=== PATIENT | female | born 1950 | race African-American/Black ===

== ENCOUNTER 2024-06-25 14:40 | Emergency (ER) | payer OTHER ==
[~2024-06-25] VITALS: Ht 167.6 cm; Wt 45.4 kg
[2024-06-25] MEDS ORDERED: IBUPROFEN 600 MG TABLET ONE (15:16)
[2024-06-25] MEDS: IBUPROFEN 600 MG TABLET PO ONE (15:23)
[2024-06-25 16:18] VITALS: BP 125/74; O2SAT 98
== END 2024-06-25 16:19 ==
LOC: ER 14:55
DX: M79.642 Pain in left hand (principal); M79.641 Pain in right hand; M54.2 Cervicalgia; I10 Essential (primary) hypertension; M06.9 Rheumatoid arthritis, unspecified

== ENCOUNTER 2024-11-18 10:14 | Inpatient (IN) | payer OTHER ==
[~2024-11-18] VITALS: Ht 165.1 cm; Wt 39.2 kg
[2024-11-18 11:47] LABS: PLATELET COUNT (AUTO) 352 K/uL (150-450); RED BLOOD CELL COUNT(AUTO) 4.78 MIL/uL (4.0-5.2); RED CELL DISTRIBUTION WIDTH 18.9 % (11.5-15.0); WHITE BLOOD COUNT (AUTO) 8.2 K/uL (4.3-11.0)
[2024-11-18 11:53] LABS: CALCIUM, SERUM 8.9 mg/dL (8.5-10.1); CREATININE 0.8 mg/dL (0.6-1.3); SODIUM SERUM 140 mmol/L (136-145); UREA NITROGEN, BLOOD 11 mg/dL (7-18)
[2024-11-18 11:58] LABS: ASPARTATE AMINOTRANSFERASE 22 U/L (15-37); TOTAL PROTEIN, SERUM 8.9 g/dL (6.4-8.2)
[2024-11-18 12:02] LABS: LACTIC ACID 2.4 mmol/L (0.4-2.0)
[2024-11-18 12:02] LABS: APPEARANCE,URINE CLOUDY (CLEAR); BLOOD, URINE NEGATIVE Ery/uL (NEGATIVE); LEUKOCYTE ESTERASE ,URINE NEGATIVE (NEGATIVE); NITRITE, URINE NEGATIVE (NEGATIVE); UGLUCOSE NEGATIVE (NEGATIVE)
[2024-11-18 12:06] LABS: ADD URINE CULTURE NO; SQUAMOUS EPITHELIAL CELL,UR Moderate /HPF (None Seen); URINE AMORPHOUS URATE Many /HPF (None Seen)
[2024-11-18 12:08] LABS: INR 1.04 (0.91-1.10)
[2024-11-18] MEDS: PIPERACILLIN /TAZOBACTAM 3.375 G in IV D5W 50 ML IV ONE (12:30)
[2024-11-18 12:34] VITALS: O2SAT 99
[2024-11-18] MEDS ORDERED: IV NS 0.9% 250 ML IV ONE (12:40)
[2024-11-18] MEDS ORDERED: IOHEXOL-300 100 ML VIAL IV ONE (12:40)
[2024-11-18] MEDS ORDERED: NEBI2.5T5 PO (12:42)
[2024-11-18] MEDS ORDERED: ACET-73 PO (12:42)
[2024-11-18] MEDS ORDERED: OMEG1CAP76 PO (12:42)
[2024-11-18] MEDS ORDERED: IRON PO (12:42)
[2024-11-18] MEDS ORDERED: AMLO-212 PO (12:42)
[2024-11-18] MEDS ORDERED: MULT-1168 PO (12:42)
[2024-11-18] MEDS ORDERED: METRONIDAZOLE 500MG/ NS 100ML 100 ML IV ONE (13:53)
[2024-11-18] MEDS: IV NS 0.9% 1,000 ML BAG IV ONE (13:59)
[2024-11-18] MEDS: FLAGYL/NS RTU 500 MG/100 ML PIGGYBACK IV ONE (13:59)
[2024-11-18 16:00] VITALS: BP 153/85; TEMP 98.1; O2SAT 98
[2024-11-18] MEDS ORDERED: ONDANSETRON HCL/PF 4 MG/2 ML VIAL IVP PRN (16:00)
[2024-11-18] MEDS ORDERED: Z GUARD REMEDY 4 OZ OINT TP PRN (16:00)
[2024-11-18] MEDS ORDERED: MAGNESIUM HYDROXIDE 30 ML UDC PO PRN (16:00)
[2024-11-18] MEDS ORDERED: ACETAMINOPHEN 325 MG TABLET PO PRN (16:00)
[2024-11-18] MEDS ORDERED: MAG HYDROX/AL HYDROX/SIMETH 30 ML UDC PO PRN (16:00)
[2024-11-18] MEDS ORDERED: DOSING PER PHARMACY-ZOSYN IV 1 EA EA XX PRN (16:00)
[2024-11-18] MEDS: IV NS 0.9% 1,000 ML IV PRN (16:25)
[2024-11-18] MEDS ORDERED: MORPHINE SULFATE INJ 2 MG/ML DISP.SYRIN IV PRN (16:30)
[2024-11-18] MEDS ORDERED: HYDROMORPHONE 1 MG/1 ML DISP.SYRIN IV PRN (16:30)
[2024-11-18] MEDS: ZOSYN IVPB 2.25 G in IV D5W 50ml IV SCH (17:27)
[2024-11-18 20:00] VITALS: BP 157/83; TEMP 97.7; O2SAT 99
[2024-11-19 05:50] LABS: PLATELET COUNT (AUTO) 309 K/uL (150-450); RED BLOOD CELL COUNT(AUTO) 4.01 MIL/uL (4.0-5.2); RED CELL DISTRIBUTION WIDTH 18.9 % (11.5-15.0); WHITE BLOOD COUNT (AUTO) 5.1 K/uL (4.3-11.0)
[2024-11-19 06:03] LABS: CALCIUM, SERUM 8.2 mg/dL (8.5-10.1); CREATININE 0.6 mg/dL (0.6-1.3); PHOSPHORUS 3.3 mg/dL (2.5-4.9); SODIUM SERUM 145.0 mmol/L (136-145); UREA NITROGEN, BLOOD 7.0 mg/dL (7-18)
[2024-11-19 08:32] VITALS: BP 120/67; TEMP 97.5; O2SAT 96
[2024-11-19] MEDS: POTASSIUM CHLORIDE 20 MEQ POWDER PACKET PO ONE (09:56)
[2024-11-19] MEDS: PIPERACILLIN /TAZOBACTAM 3.375 G in IV D5W 100 ML IV SCH (13:21)
[2024-11-19 16:11] VITALS: BP 116/67; TEMP 98.2; O2SAT 97
[2024-11-19 20:00] VITALS: BP 132/76; TEMP 98.2; O2SAT 100
[2024-11-19 20:02] LABS: OCCULT BLOOD STOOL POSITIVE (NEGATIVE)
[2024-11-20 06:16] LABS: CALCIUM, SERUM 8.6 mg/dL (8.5-10.1); CREATININE 0.4 mg/dL (0.6-1.3); SODIUM SERUM 141.0 mmol/L (136-145); UREA NITROGEN, BLOOD 3.0 mg/dL (7-18)
[2024-11-20 08:00] VITALS: BP 134/74; TEMP 98.1; O2SAT 97
[2024-11-20] MEDS: POTASSIUM CHLORIDE 20 MEQ POWDER PACKET PO ONE (10:09)
[2024-11-20 16:00] VITALS: BP 147/78; TEMP 98.4; O2SAT 100
[2024-11-20 20:00] VITALS: BP 133/76; TEMP 98.1; O2SAT 100
[2024-11-21 06:10] LABS: CALCIUM, SERUM 8.6 mg/dL (8.5-10.1); CREATININE 0.5 mg/dL (0.6-1.3); SODIUM SERUM 141.0 mmol/L (136-145); UREA NITROGEN, BLOOD 2.0 mg/dL (7-18)
[2024-11-21 06:35] LABS: PLATELET COUNT (AUTO) 288 K/uL (150-450); RED BLOOD CELL COUNT(AUTO) 4.10 MIL/uL (4.0-5.2); RED CELL DISTRIBUTION WIDTH 19.3 % (11.5-15.0); WHITE BLOOD COUNT (AUTO) 5.1 K/uL (4.3-11.0)
[2024-11-21 07:30] VITALS: BP 146/79; TEMP 97.9; O2SAT 94
[2024-11-21] MEDS ORDERED: METR500T PO (12:06)
[2024-11-21] MEDS ORDERED: CIPR-262 PO (12:06)
== END 2024-11-21 16:57 | DRG 248 ==
LOC: ER 10:22 → MED 14:33
PROVIDERS: ADMIT Internal Medicine; ATTEND Internal Medicine
DX: A04.9 Bacterial intestinal infection, unspecified (principal); E44.0 Moderate protein-calorie malnutrition; E87.20 Acidosis, unspecified; K56.0 Paralytic ileus; K51.511 Left sided colitis with rectal bleeding; E86.0 Dehydration; I10 Essential (primary) hypertension; R19.09 Other intra-abdominal and pelvic swelling, mass and lump; K92.1 Melena
CPT/HCPCS: 36415; 71045-TC; 80048-TC; 80076-TC; 81001; 82272-TC; 83605-TC; 83735-TC; 84100-TC; 84484-TC; 85025-TC; 85730-TC; 86850-TC; 87040-TC; 87081-TC; 87086-TC; A4223; G0378; J2543; J7030; J7050; J7060; Q9967